=== PATIENT | male | born 1975 | race Caucasian/White ===

== ENCOUNTER → 2024-09-19 11:40 | Outpatient (BNVA) | payer OTHER, SELFPAY | PROVIDERS: Visit Provider Physician Assistant | DX: M70.811 Other soft tissue disorders related to use, overuse and pressure, right shoulder (principal) | CPT/HCPCS: 99213 ==

== ENCOUNTER 2024-10-03 15:27 | Outpatient (AMB) | payer OTHER, SELFPAY ==
--- NOTE | 2024-10-03 15:38 | A.OFFVIS_ITS ---
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 Patient reports this not having pain at the moment. This is not a work injury as per patient stating. Patient has tried Ibuprofen which gave him relief. 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 Satya Kaiser is a 49-year-old [id number] male who presents to the office today for evaluation of right shoulder pain. 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 He was seen at the work connection where he was prescribed ibuprofen and provided with an orthopedics referral for further evaluation and treatment. He has been taking the ibuprofen and has noticed a decrease in his pain/discomfort. 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 No ecchymosis, erythema, or edema. Full shoulder ROM in all planes. Negative cross-body reach. Negative empty can. Negative lift-off. Negative belly-press. Negative drop arm. NVI. Assessment & Plan Assessment & Plan (1) Painful arc syndrome of right shoulder: Code(s): M75.101 - Unspecified rotator cuff tear or rupture of right shoulder, not specified as traumatic Category: Medical Plan Mr. Satya Kaiser is a 49-year-old [id number] male who presents to the office today for evaluation of right shoulder pain. 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 He was seen at the work connection where he was prescribed ibuprofen and provided with an orthopedics referral for further evaluation and treatment. He has been taking the ibuprofen and has noticed a decrease in his pain/discomfort. While the office today, we discussed role of formal physical therapy. However the patient declined stating that his pain has been progressively resolving on its own. He will continue taking ibuprofen as needed for pain. He is going to make activity modifications at work to limit his overhead motions. X-rays that were obtained on 09/05/2024 are available for my review today and are negative for any acute fracture or dislocation. There is no additional orthopedic intervention warranted at this time and the patient may follow up p.r.n., sooner if needed. A work note was provided to the patient that he was seen today in the office. Coding Level of Care Code New Pt Level 3 (25354) Diagnoses Painful arc syndrome of right shoulder M75.101
--- OUTSIDE RECORDS SUMMARY | 2024-10-03 18:46 | XMS_ITS | Clinical Summary ---
Author Organization [facility] ity Address [address] [place] [address] Care Team Providers Care Product Design Engineer Name Role Phone Paolo Lopez MD Primary Care Provider [phone] Allergies No known active allergies Medications simvastatin (ZOCOR) 10 mg tablet Take 1 Tab by mouth at bedtime. 01/26/2015 Active Active Problems Problem Noted Date Diagnosed Date High cholesterol 09/23/2014 Surgical History Surgery Date Site/Laterality Comments ANKLE SURGERY PROCEDURE: HISTORICAL ANKLE SURGERY; COMMENT: internal fixation left ankle age 21 Family History Medical History Relation Name Comments Heart attack Maternal Grandmother Stroke Mother Relation Name Status Comments Father Asthma Maternal Grandmother Mother Stroke Social History Tobacco Use Types Packs/Day Years Used Date Smoking Tobacco: Never Smokeless Tobacco: Never Alcohol Use Standard Drinks/Week Comments Yes 0 (1 standard drink = 0.6 oz pur e alcohol) Sex and Gender Information Value Date Recorded Sex Assigned at Not on file Legal Sex Male 6:17 PM EST Gender Identity Not on file Sexual Orientation Not on file Obstetrics History Plan of Treatment Health Maintenance Due Date Last Done Comments DTaP,Tdap,and Td Vaccines (1 - Tdap) 1996 Hepatitis B Vaccines (1 of 3 - 19+ 3-dose series) 1996 Cholesterol Screening (Lipid Panel) 07/09/2022 01/26/2015 Colorectal Cancer Screening: Colonoscopy 07/09/2022 Depression Screening 07/09/2022 HIV Screening 07/09/2022 Hepatitis C Screening 07/09/2022 Social Influencers of Health Screening 07/09/2022 COVID-19 Vaccine ( - 2023-2 5 season) 2024 Influenza Vaccine (#1) 2024 HIB Vaccines Aged Out No longer eligi ble based on patient's age to complete this topic HPV Vaccines Aged Out No longer eligi ble based on patient's age to complete this topic Hepatitis A Vaccines Aged Out No long er eligible based on patient's age to complete this topic IPV Vaccines Aged Out No longer eligi ble based on patient's age to complete this topic MMR Vaccines Aged Out No longer eligi ble based on patient's age to complete this topic Meningococcal ACWY Vaccine Aged Out N o longer eligible based on patient's age to complete this topic Meningococcal B Vacine Aged Out No lo nger eligible based on patient's age to complete this topic Pneumococcal Vaccine: Pediat rics (0 to 5 Years) and At-Risk Patients (6 to 64 Years) Aged Out No longer eligi ble based on patient's age to complete this topic RSV Immunization Patients Un jazmyne 20 months Aged Out No longer eligible b ased on patient's age to complete this topic Varicella Vaccines Aged Out No longer eligible based on patient's age to complete this topic Procedures Procedure Name Priority Date/Time Associated Diagnosis Comments LIPID PANEL Routine 01/26/2015 from Last 3 Months or Most Recently Relevant to Health Maintenance Results * (ABNORMAL) Lipid panel (01/26/2015) LDL/HDL Ratio 6(A) 0 - 4 Triglycerides 123 0 - 150 mg/dL Cholesterol 228(A) 0 - 200 mg/dL HDL 39(A) >=40 mg/dL LDL Cholesterol 165(A) 0 - 100 mg/dL Blood Venous blood specimen / Unknown us Historical Provider LAB BLOOD ORDERABLES Jeannie l Result from Last 3 Months or Most Recently Relevant to Health Maintenance Care Teams Product Design Engineer Relationship Specialty Start Date End Date Paolo Lopez MD PCP - General Internal Medicine 08/06/13
== END 2024-10-03 15:49 | disposition home or self-care (01) ==
PROVIDERS: Visit Provider Physician Assistant
DX: M75.101 Unspecified rotator cuff tear or rupture of right shoulder, not specified as traumatic (principal); Z04.2 Encounter for examination and observation following work accident
CPT/HCPCS: 99203

== ENCOUNTER 2024-10-03 15:27 | Outpatient (REF) | payer OTHER, SELFPAY | END 2024-10-03 15:28 | disposition home or self-care (01) | LOC: HO.HOSX 15:27 | PROVIDERS: Visit Provider Physician Assistant | DX: M75.101 Unspecified rotator cuff tear or rupture of right shoulder, not specified as traumatic (principal) | CPT/HCPCS: 99202 ==